=== PATIENT | female | born 1995 | race Caucasian/White ===

== ENCOUNTER 2021-09-17 08:26 | Emergency (ER) | payer BC, SELFPAY ==
--- NOTE | ~2021-09-17 | CT_ITS ---
EXAMINATION: CT abdomen pelvis wo con DATE: 09/17/2021 10:34 INDICATION: Right flank pain. TECHNIQUE: Computed tomography (CT) of the abdomen and pelvis was performed without intravenous contr ast. Automated exposure control and iterative reconstruction technique were employed. The dose-length product was 450.38 mGy-cm. COMPARISON: None. FINDINGS: The visualized portions of the lung bases demonstrate minimal atelectasis. No pleural effus ion. The heart size is normal. No pericardial effusion. The liver, gallbladder, spleen, pancreas, adr enal glands, and kidneys are normal. No urolithiasis. There is an intrauterine device in expected pos ition. The appendix is normal. There are no pathologically enlarged lymph nodes. There is no free int raperitoneal fluid. There is mild lumbar spondylosis. IMPRESSION: 1. No etiology for the patient's symptoms. Reviewed, dictated and finalized at location B. [facility]
[2021-09-17 09:17] VITALS: BP 170/92; PULSE 100; RESP 17; TEMP 36.1; O2SAT 100
[2021-09-17 09:22] LABS: Basophils Percent Auto 0.4 % (0.2-1.2); Eosinophils Absolute Auto 0.1 K/mm3 (0-0.3); Eosinophils Percent Auto 1.2 % (0-4.4); Hematocrit 45.3 % (37.0-47.0); Hemoglobin 15.5 g/dL (12.0-15.0); Immature Granulocyte Absolute 0.02 K/mm3 (0.00-0.031); Immature Granulocyte Percent A 0.3 % (0-0.5); Lymphocytes Absolute Auto 2.72 K/mm3 (0.9-3.2); Lymphocytes Percent Auto 36.4 % (18.3-44.2); Mean Corpuscular HGB Conc 34.2 g/dl (32-36); Mean Corpuscular Hemoglobin 31.8 pg (26-34); Mean Platelet Volume 9.5 fl (7.4-10.4); Monocytes Absolute Auto 0.7 K/mm3 (0.1-0.6); Neutrophils Percent Auto 52.7 % (45.5-73.1); Platelet Count Result 344 k/mm3 (150-375); Red Blood Count 4.87 M/mm3 (4.2-5.4); Red Cell Distribution Width 12.3 % (11.5-14.5); White Blood Count 7.5 K/mm3 (4.5-10.0)
[2021-09-17 09:35] LABS: Add Urine Microscopic? YES; Alanine Aminotransferase 26 U/L (4-35); Albumin Level 4.7 g/dL (3.5-5.1); Alkaline Phosphatase 43 U/L (38-126); Anion Gap 9 mmol/L (8-16); Appearance Urine Cloudy (Clear); Aspartate Amino Transferase 31 U/L (14-36); Bacteria Urine Trace /hpf; Bilirubin Urine Negative (Negative); Bilirubin,Total 0.5 mg/dL (0.2-1.3); Blood Urea Nitrogen 12 mg/dL (7-17); Blood Urine Negative (Negative); Carbon Dioxide 29 mmol/L (22-30); Chloride 101 mmol/L (98-107); Color Urine Amber (Yellow); Estimated CRCL calculation 94 ml/min; Estimated Glomerular Filt Rate > 60; Glucose 84 mg/dL (65-110); Glucose Urine UA Negative (Negative); Ketones Urine Negative (Negative); Leukocyte Esterase Ur Negative LEU/UL (Negative); Mucus Urine Moderate /lpf; Nitrate Urine Negative (Negative); Potassium 3.8 mmol/L (3.4-5.0); Protein Urine 1+ mg/dL (Negative); RBC Urine 0-2 /hpf (0-2); Sodium 139 mmol/L (137-145); Specific Grav Ur 1.027 (1.001-1.035); Squamous Epithelial Cell Urine Many /hpf (Few); Urobilinogen Urine Negative mg/dL (<2.0)
--- NOTE | 2021-09-17 09:53 | ED.GENADULT ---
HPI - General Adult General Chief complaint: Back Pain/Injury Stated complaint: R SIDE PAIN, HX CHRONIC KIDNEY INFX Time Seen by Provider: 09/17/21 09:09 Source: patient Mode of arrival: ambulatory Limitations: no limitations History of Present Illness HPI narrative: Patient is a 26-year-old female with chief complaint of strong smelling urine and right flank pain. Patient reports that she has been evaluated by her CRUISE DIRECTOR Dr. Alejandre and swabbed for vaginal infections(neg results) and has been treated for a urinary tract infection 3 times. She reports when she finishes the antibiotics she notices her urine become stronger and smell and she has some right flank pain. Patient denies urinary frequency or urgency. Patient denies hematuria or dysuria. Patient reports that her CRUISE DIRECTOR to refer her to a urologist for further investigation and her appointment is on Wednesday. Patient reports having some nausea but no present vomiting. Patient denies any fever, chills or lethargy. Patient reports she has been able to tolerate food and fluids p.o. Related Data Allergies Allergy/AdvReac Type Severity Reaction Status Date / Time No Known Allergies Allergy Verified 09/17/21 09:55 Review of Systems Review of Systems: CONSTITUTIONAL: Denies fever, chills, or sweats. EYES: Denies visual changes, redness, or discharge. ENT: Denies rhinorrhea, congestion, sore throat, or otalgia. CARDIOVASCULAR: Denies chest pain, palpitations, or edema. RESPIRATORY: Denies cough or dyspnea. GASTROINTESTINAL: Reports right flank pain, nausea denies abdominal pain, vomiting, or diarrhea. GENITOURINARY: Reports strong smelling urine denies vaginal discharge, dysuria or hematuria. SKIN: Denies rash or itching. MUSCULOSKELETAL: Denies back pain, joint pain, or myalgia. NEUROLOGIC: Denies headache, numbness, dizziness, or weakness. PSYCHIATRIC: Denies anxiety or depression. Exam Narrative: GENERAL: Well-appearing, well-nourished, and in no acute distress. Nontoxic in appearance. HEAD: Normocephalic, atraumatic. EYES: PERRLA and EOMI. NECK: Supple. No adenopathy or masses. CHEST: Clear to auscultation. No respiratory distress. No wheezes rales or rhonchi HEART: Regular rate and rhythm. ABDOMEN: Reports right upper flank pain reports. Soft, nontender, nondistended, normal active bowel sounds. EXTREMITIES: Normal range of motion. No edema. SKIN: Warm, dry, no rash. NEURO: No focal deficits. Alert and oriented x3. PSYCH: Normal mood and affect. Course Vital Signs Vital signs: Vital Signs Temperature 97.0 F L 09/17/21 09:17 Pulse Rate 100 09/17/21 09:17 Respiratory Rate 17 09/17/21 09:17 Blood Pressure 170/92 H 09/17/21 09:17 Pulse Oximetry 100 09/17/21 09:17 Temperature 97.0 F L 09/17/21 09:17 Pulse Rate 78 09/17/21 11:11 Respiratory Rate 18 09/17/21 11:11 Blood Pressure 110/75 09/17/21 11:11 Pulse Oximetry 100 09/17/21 11:11 Medical Decision Making MDM Narrative Medical decision making narrative: Patient labs are stable. Patient urine analysis is negative for leukocytes or nitrites. Patient CT is negative for any etiology that would suggest the cause of her right flank pain. It may be musculoskeletal in nature. Patient states that her urine has a strong smell. Patient has an appointment with urology on Wednesday which has been set up by her CRUISE DIRECTOR who was perform pelvic exam to take and vaginal swabs to make sure that there is not signs of vaginal infection. Patient reports she has also been treated for UTI. Urine culture has been sent. Patient declines Zofran, Toradol or any other medications in emergency department. Patient has been instructed to also inform her primary care of her symptoms to see if there are any other testings or evaluations that need to be performed on outpatient patient. Patient has been instructed to return to the emergency room if she has any emergent symptoms. Patient declines needing a work note. Nicolasa
[2021-09-17] MEDS: SODIUM CHLORIDE 0.9% IV 1,000 ML 999 ML IV CONT (09:55)
--- NOTE | 2021-09-17 10:33 | PC.NURSE ---
Pt in ct at this time.
[2021-09-17 11:11] VITALS: BP 110/75; PULSE 78; RESP 18; O2SAT 100
== END 2021-09-17 11:12 | disposition home or self-care (01) ==
PROVIDERS: Emergency Provider Emergency Medicine
DX: R82.90 Unspecified abnormal findings in urine (principal); M54.9 Dorsalgia, unspecified; Z87.440 Personal history of urinary (tract) infections
CPT/HCPCS: 36415; 74176; 80053; 81001; 81025; 85025; 96360; 99284; J7030